=== PATIENT | male | born 1960 | race Caucasian/White ===

== ENCOUNTER 2022-01-15 18:07 | Emergency (ER) | payer OTHER ==
[~2022-01-15] VITALS: Ht 177.8 cm; Wt 136.1 kg
[2022-01-15 21:40] VITALS: BP 147/93
== END 2022-01-15 21:46 | disposition home or self-care (01) ==
LOC: ER 18:07
DX: S30.0XXA Contusion of lower back and pelvis, initial encounter (principal); G89.29 Other chronic pain; M54.9 Dorsalgia, unspecified; W11.XXXA Fall on and from ladder, initial encounter; Y93.89 Activity, other specified; Y92.89 Other specified places as the place of occurrence of the external cause; Y99.8 Other external cause status
CPT/HCPCS: 72131